=== PATIENT | female | born 1945 | race Caucasian/White ===

== ENCOUNTER → 2017-09-08 | Day surgery (SDC) | payer MEDICARE, OTHER ==
[2017-09-06 14:03] LABS: BASOPHILS % 0.3 % (0.0-1.0); EOSINOPHILS # (AUTO) 0.1 (0.0-0.4); EOSINOPHILS % 0.8 % (0.0-6.0); HEMATOCRIT 30.4 % (34.2-44.1); LYMPHOCYTES # (AUTO) 2.2 (1.0-3.2); LYMPHOCYTES % 27.7 % (18.0-39.1); MEAN CORPUSCULAR HEMOGLOBIN 24.6 pg (28-32); MEAN CORPUSCULAR HGB CONC 29.6 g/dL (31-35); MEAN CORPUSCULAR VOLUME 83.1 fL (81-99); MONOCYTES # (AUTO) 0.6 (0.2-0.8); MONOCYTES % 7.3 % (4.4-11.3); PLATELET COUNT 300 x10e3/uL (140-360); RED BLOOD COUNT 3.66 x10e6/uL (3.6-5.1)
[2017-09-06 14:24] LABS: ANION GAP 13.7 mmol/L (8-16); CALCIUM 8.8 mg/dL (8.4-10.2); CREATININE, SERUM 0.96 mg/dL (0.57-1.11); POTASSIUM 4.7 mmol/L (3.5-5.1)
--- NOTE | 2017-09-06 14:39 | Diagnostic Imaging Report ---
PROCEDURE: X-RAY CHEST, TWO VIEWS COMPARISON: None. INDICATIONS: PRE OPERATIVE CHEST X-RAY FINDINGS: LUNGS: No consolidations or edema. The vascular markings are normal. PLEURA: No effusions or pneumothorax. There is [id number] eventration of left diaphragm. HEART \T\ MEDIASTINUM: The heart is normal in size. The aorta is mildly ectatic with calcifications in the descending thoracic aorta. BONES \T\ SOFT TISSUES: Diffusely demineralized. There are compression deformities of the lower thoracic spine of approximately 50%. There is mild kyphosis of the lower thoracic spine. There are no lytic or blastic lesions. Clips in the upper abdomen are suggestive of cholecystectomy. CONCLUSION: No acute thoracic abnormality. 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 Compression deformities of the lower thoracic spine. Dictated by: Fransisco Huitron M.D. on 09/06/2017 at 14:39 Electronically approved by: Fransisco Huitron M.D. on 09/06/2017 at 14:39
[~2017-09-08] MED LIST: ALLEGRA ALLERG180 MG PO; ARTIFICIAL TEA1 EACH OP; BACLOFEN10 MG PO; BACTRIM DS TAB1 EACH PO; BELLADONNA/OPIUM 60 MG SUPP PR ONE; BUPIVACAINE 0.25%/EPI 30ML SDV INJ ONE; CARAFATE1 GM/10 ML PO; COLACE100 MG PO; CYMBALTA30 MG PO; DEPAKOTE SPRIN125 MG PO; DEXAMETHASONE SOD PHOS INJ 4 MG/ML VIAL ONE; DILAUDID2 MG PO; FOLIC ACID1 MG PO; GENTAMICIN 80MG/NS 100 ML 100 ML IV ONE; IOPAMIDOL 610MG/1ML 300 MG/ML VIAL IV ONE; KETOROLAC TROMETHAMINE 30 MG/ML VIAL ONE; LASIX20 MG PO; LIDOCAINE HCL 2% LOCAL INJ 5 ML SDV VIAL INJ ONE; MELATONIN3 MG PO; METHADONE HCL10 MG PO; MIDAZOLAM HCL 2 MG/2 ML VIAL ONE; MORPHINE SULFATE INJ 10 MG/ML ONE; MULTIVITAMINS1 EAC6 PO; MUPIROCIN 2% OINT 22 GM TUBE ONE; NAPROSYN500 MG PO; NYSTATIN-TRIAMC15 GM TOP; ONDANSETRON HCL INJ 2 MG/ML VIAL ONE; PIPER-TAZ 3.375 GM 50 ML ONE; PREDNISONE5 MG PO; PROPOFOL IV EMULSION 10 MG/ML 20 ML VIAL ONE; SENNA S TABLET1 EACH PO; SEVOFLURANE INHAL SOLN 250 ML PEN BTL ONE; TRAZODONE HCL50 MG PO; VITAMIN C500 MG PO; VITAMIN D1000 UNIT PO; XANAX0.25 MG PEG
--- OUTSIDE RECORDS SUMMARY | 2017-09-08 08:48 | XMS REPORT ---
Author Author [facility] Address Unknown Phone Unavailable Care Team Providers Care Volunteer Patient Representative Name Role Phone KENZIE GUTIERREZ Unavailable Unavailable Problems This patient has no known problems. Allergies, Adverse Reactions, Alerts This patient has no known allergies or adverse reactions. Medications This patient has no known medications. Results Test Description Test Time Test Comments Text Results Atomic Results Result Comments CHEST 2 VIEWS [place] [address] Patient Name: TYSON WATTS MR #: [id number] : 1945 Age/Sex: 72/F Req #: [id number] Adm Physician: Ordered by: LISA GRAMAJO MD Report #: [id number] Location: OR Room/Bed: Procedure: [id number] DX/CHEST 2 VIEWS Exam Date: Exam Time: REPORT STATUS: Signed PROCEDURE: X-RAY CHEST, TWO VIEWS COMPARISON: None. INDICATIONS: PRE OPERATIVE CHEST X-RAY FINDINGS: LUNGS: No consolidations or edema. The vascular markings are normal. PLEURA: No effusions or pneumothorax. There is [id number] eventration of left diaphragm. HEART T MEDIASTINUM: The heart is normal in size. The aorta is mildly ectatic with calcifications in the descending thoracic aorta. BONES T SOFT TISSUES: Diffusely demineralized. There are compression deformities of the lower thoracic spine of approximately 50%. There is mild kyphosis of the lower thoracic spine. There are no lytic or blastic lesions. Clips in the upper abdomen are suggestive of cholecystectomy. CONCLUSION: No acute thoracic abnormality. 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 Compression deformities of the lower thoracic spine. Dictated by: Valerie Huitron M.D. on 09/06/2017 at 14:39 Electronically approved by: Valerie Huitron M.D. on 09/06/2017 at 14:39 Dictated By: VALERIE HUITRON MD 1439 Transcribed By : JOSE on 09/06/17 1439 COPY TO: LISA GRAMAJO MD
--- NOTE | 2017-10-21 03:59 | Operative Report ---
DATE OF PROCEDURE: September 08, 2017 PREOPERATIVE DIAGNOSES: 1. Chronic urinary retention. 2. Urinary tract infections. PREOPERATIVE DIAGNOSES: 1. Chronic urinary retention. 2. Urinary tract infections. 3. Complete left-sided ureteral duplication. 4. Atrophic (senile) vaginitis. OPERATIONS PERFORMED: 1. Cystourethroscopy with bilateral ureteral catheterization and retrograde ureteropyelography (3 total ureteral catheterizations performed, 2 on the left and 1 on the right). 2. Interpretation of retrograde ureteropyelography. 3. Supervision of fluoroscopy, no radiologist present. 4. Cystourethroscopy with cystotomy and cystostomy (separate procedure performed for the urinary retention for placement of suprapubic cystostomy). 5. Pelvic examination under anesthesia. ANESTHESIA: General. COMPLICATIONS: None. CLINICAL SUMMARY: Brittney Hernandez is 72-year-old woman with chronic urinary retention. She wants a suprapubic cystostomy. She is aware of the risks of bleeding, infection, injury to adjacent structures, need for additional procedures, and elected to proceed. OPERATIVE PROCEDURE IN DETAIL: Informed consent was verified. Brittney Hernandez was properly identified, taken to the operating room and placed on the cystoscopy table in supine position. Anesthesia was uneventfully begun. The patient was then carefully and gently repositioned in the dorsal lithotomy position with all pressure points well padded. Her genitalia were prepared and draped in usual sterile fashion. The 22.5-Italian cystoscope sheath with the obturator in place was atraumatically inserted in patient's urethra and bladder was drained. Panendoscopy of the urinary bladder revealed 2 left ureteral orifices, there was 1 ureteral orifice on the right. The right ureteral orifice was laterally displaced. No suspicious mucosal lesions were identified. A ureteral catheter was used to cannulate both ureters on the left and the single ureter on the right, and retrograde ureteral pyelograms were performed. Interpretation of retrograde ureteropyelography: Contrast was instilled in retrograde fashion bilaterally. The right hand side exhibited normal ureter and normal upper collecting system. There was some lateral displacement of the ureteral orifice noted fluoroscopically. The left hand side exhibited complete ureteral duplication with delicate calices. No sign of caliceal blunting. Unobstructed drainage was observed bilaterally fluoroscopically. The patient's bladder was filled to capacity under gravity drainage. We then placed a spinal needle through the suprapubic region into the cephalad portion of the anterior bladder wall. We then infiltrated this tract with Marcaine with epinephrine. We then made a small stab wound. We then placed an introducer needle, followed by dilator sheath. We then utilized this dilator sheath to place an 18-Italian Santizo catheter. This was all done under cystoscopic control with the full bladder. Once this was performed, the Santizo catheter was deployed and peel-away sheath was removed. The suprapubic cystostomy was then secured to the skin with nylon sutures. There was no evidence of bleeding from that site. The patient's bladder was then drained. The cystoscope was withdrawn. Pelvic examination under anesthesia revealed severely atrophic (senile) vaginitis. No abnormal palpable pelvic masses could be appreciated. Urine culture was sent for documentation. The patient was then uneventfully reversed from anesthesia and taken to recovery room in stable condition. There were no complications to the procedure. She tolerated the procedure well. Plans will be to follow the patient up in 5 or 6 weeks to change her cystostomy tube for the first time in the office. Job#: [id number] cc:SAL CASTELLANOS MD
== END | disposition home or self-care (01) ==
LOC: OR 08:45
PROVIDERS: ATTEND Urology
DX: N39.0 Urinary tract infection, site not specified (principal); Q62.5 Duplication of ureter; N39.46 Mixed incontinence; N39.44 Nocturnal enuresis; N81.89 Other female genital prolapse; N95.2 Postmenopausal atrophic vaginitis; I10 Essential (primary) hypertension; Z01.810 Encounter for preprocedural cardiovascular examination; Z01.812 Encounter for preprocedural laboratory examination; Z01.818 Encounter for other preprocedural examination
CPT/HCPCS: 36415; 51102; 52005; 71046; 74420; 80048; 85025; 87086; 93005; C1758; J1100; J1580; J1885; J2001; J2250; J2270; J2405; J2543; Q9967

== ENCOUNTER → 2018-03-16 | Day surgery (SDC) | payer MEDICARE ==
[2018-03-14 14:29] LABS: BASOPHILS % 0.2 % (0.0-1.0); EOSINOPHILS # (AUTO) 0.1 (0.0-0.4); EOSINOPHILS % 1.2 % (0.0-6.0); HEMATOCRIT 33.3 % (34.2-44.1); HEMOGLOBIN 9.9 g/dL (12.0-16.0); LYMPHOCYTES # (AUTO) 3.2 (1.0-3.2); LYMPHOCYTES % 38.7 % (18.0-39.1); MEAN CORPUSCULAR HGB CONC 29.7 g/dL (31-35); MEAN CORPUSCULAR VOLUME 84.1 fL (81-99); MONOCYTES # (AUTO) 0.7 (0.2-0.8); MONOCYTES % 8.8 % (4.4-11.3); NEUTROPHILS % 49.6 % (38.7-80.0); PLATELET COUNT 222 x10e3/uL (140-360); RED BLOOD COUNT 3.96 x10e6/uL (3.6-5.1)
[~2018-03-16] MED LIST changes: -BELLADONNA/OPIUM 60 MG SUPP PR ONE; +BOTULINUM TOXIN TYPE A 100 UNIT VIAL IM ONE; -BUPIVACAINE 0.25%/EPI 30ML SDV INJ ONE; +CYCLOBENZAPRINE10 MG PO; +DESFLURANE 240 ML BTL INH ONE; +DULCOLAX SUPP10 MG RC; +FENTANYL CITRATE/PF 100MCG/2 ML INJ ONE; +HYDROMORPHONE 2MG/ML 2 MG/ML ML ONE; -KETOROLAC TROMETHAMINE 30 MG/ML VIAL ONE; -MIDAZOLAM HCL 2 MG/2 ML VIAL ONE; -MORPHINE SULFATE INJ 10 MG/ML ONE; -MUPIROCIN 2% OINT 22 GM TUBE ONE; +MYLANTA PO; +MYRBETRIQ50 MG PO; +PEPTO-BISMOL262 M1 PO; +PROMOD946 ML PO; +ROBAFEN100 MG/5 M PO; -SEVOFLURANE INHAL SOLN 250 ML PEN BTL ONE; +TRIAMCINOLONE A15 G1 TOP; +TYLENOL WITH C1 EACH PO; +VITAMIN B-121000 MCG PO; +VITAMIN C500 M1 PO; +VITAMIN D10000 UNIT PO; +XANAX0.25 MG PO; +ZOFRAN ODT4 MG PO
[2018-03-16 11:45] VITALS: BP 114/68
--- NOTE | 2018-05-02 08:00 | Operative Report ---
DATE OF PROCEDURE: March 16, 2018 PREOPERATIVE DIAGNOSES 1. Refractory urge incontinence. 2. Chronic urinary retention. 3. Suprapubic cystostomy. 4. Urinary tract infections. POSTOPERATIVE DIAGNOSES 1. Refractory urge incontinence. 2. Chronic urinary retention. 3. Suprapubic cystostomy. 4. Urinary tract infections. 5. Minimal cystocele. 6. Mild rectocele. 7. Atrophic (senile) vaginitis. PROCEDURES PERFORMED 1. Exchange of the cystostomy tube (separate procedure performed for the cystostomy tube). 2. Cystourethroscopy with bilateral ureteral catheterization and retrograde ureteropyelography (separate procedure performed for the urinary tract infections). 3. Interpretation of retrograde ureteropyelography. 4. Cystourethroscopy with intravesical injection of Botox (separate procedure performed for the refractory urge incontinence). 5. Pelvic examination under anesthesia. ANESTHESIA: General. COMPLICATIONS: None. CLINICAL SUMMARY: Brittney Hernandez is a 73-year-old woman with a suprapubic cystostomy. She has some refractory urge incontinence. She is brought for the above procedures. She is aware of the risks of bleeding, infection, injury to adjacent structures, need for additional procedures. She elected to proceed. OPERATIVE PROCEDURE IN DETAIL: Informed consent was properly. Brittney Hernandez was properly identified, taken to the operating room, and placed on the cystoscopy table in supine position. Anesthesia was uneventfully begun. The patient was then carefully and gently repositioned in dorsal lithotomy position with all pressure points well padded. Her genitalia and abdomen were prepared and draped in the usual sterile fashion. We placed a 24-[place] Santizo catheter with a 10-mL balloon through the suprapubic cystostomy site. We inflated the balloon with 10 mL of water. The 22.5-[place] cystoscope sheath was inserted in the patient's urethra. Panendoscopy revealed no suspicious mucosal lesions, no tumors, no stones and no diverticula. A cystostomy tube was seen at the anterior bladder wall. There were no suspicious lesions. An 8-[place] catheter was used to cannulate each ureter, and retrograde ureteropyelograms were performed. Interpretation of retrograde ureteropyelography: Contrast was instilled in a retrograde fashion bilaterally. There were no tumors, no stones and no diverticula. Unobstructed drainage was observed bilaterally fluoroscopically. Two hundred units of Botox were dissolved in 20 mL of sterile saline, and 1-mL aliquots were injected in an even distribution in the supratrigonal bladder. The patient's bladder was drained. Cystoscope was withdrawn. Pelvic examination under anesthesia revealed a minimal cystocele of the cephalad-most portion of the vagina. There was a grade-1 rectocele. There was atrophic (senile) vaginitis. No abnormal palpable pelvic masses could be appreciated. The patient was uneventfully reversed from anesthesia and taken to the recovery room in stable condition. Explicit postoperative instructions were given. We will follow the patient up in the office. Job#: [id number]
== END | disposition home or self-care (01) ==
LOC: OR 06:18
PROVIDERS: ATTEND Urology
DX: N39.46 Mixed incontinence (principal); N39.0 Urinary tract infection, site not specified; Z43.5 Encounter for attention to cystostomy; Q62.5 Duplication of ureter; N81.10 Cystocele, unspecified; N81.6 Rectocele; N95.2 Postmenopausal atrophic vaginitis; F41.9 Anxiety disorder, unspecified; F32.9 Major depressive disorder, single episode, unspecified; Z01.810 Encounter for preprocedural cardiovascular examination; Z01.812 Encounter for preprocedural laboratory examination
CPT/HCPCS: 36415 ×2; 51705; 52005; 52287; 74420; 84132; 85025; 93005; C1758; J0587; J1100; J1170; J1580; J2001; J2405; J2543; Q9967

== ENCOUNTER → 2018-06-08 | Day surgery (SDC) | payer MEDICARE ==
[~2018-06-08] MED LIST changes: +AMPICILLIN SOD 1 GM/NS 50ML 50 ML IV ONE; +BELLADONNA/OPIUM 30 MG SUPP RC ONE; +CEFTRIAXONE SOD 1 GM/NS 50 ML 50 ML IV ONE; -DESFLURANE 240 ML BTL INH ONE; -HYDROMORPHONE 2MG/ML 2 MG/ML ML ONE; -ONDANSETRON HCL INJ 2 MG/ML VIAL ONE; +ONDANSETRON HCL INJ 2MG/ML 2ML 2 MG/ML VIAL ONE; -PIPER-TAZ 3.375 GM 50 ML ONE; +SEVOFLURANE INHAL SOLN 250 ML PEN BTL ONE
[2018-06-08 07:33] LABS: BASOPHILS # (AUTO) 0.1 (0.0-0.1); BASOPHILS % 0.7 % (0.0-1.0); EOSINOPHILS # (AUTO) 0.4 (0.0-0.4); HEMATOCRIT 34.2 % (34.2-44.1); HEMOGLOBIN 10.4 g/dL (12.0-16.0); LYMPHOCYTES # (AUTO) 3.3 (1.0-3.2); LYMPHOCYTES % 34.3 % (18.0-39.1); MEAN CORPUSCULAR HEMOGLOBIN 26.8 pg (28-32); MEAN CORPUSCULAR HGB CONC 30.4 g/dL (31-35); MEAN CORPUSCULAR VOLUME 88.1 fL (81-99); MONOCYTES % 10.2 % (4.4-11.3); NEUTROPHILS # (AUTO) 4.7 (2.1-6.9); NEUTROPHILS % 48.8 % (38.7-80.0); PLATELET COUNT 226 x10e3/uL (140-360); RED BLOOD COUNT 3.88 x10e6/uL (3.6-5.1); RED CELL DISTRIBUTION WIDTH 14.3 % (11.7-14.4)
[2018-06-08 07:44] LABS: ANION GAP 11.9 mmol/L (8-16); BLOOD UREA NITROGEN 18 mg/dL (7-26); BUN/CREATININE RATIO 22 (6-25); CALCIUM 8.4 mg/dL (8.4-10.2); CARBON DIOXIDE 31 mmol/L (22-29); CHLORIDE 97 mmol/L (98-107); CREATININE, SERUM 0.81 mg/dL (0.57-1.11); EST GLOMERULAR FILTRATION RATE > 60 ML/MIN (60-); GLUCOSE 84 mg/dL (74-118); POTASSIUM 3.9 mmol/L (3.5-5.1); SODIUM 136 mmol/L (136-145)
[2018-06-08 11:15] VITALS: BP 118/71
--- NOTE | 2018-08-02 03:17 | Operative Report ---
DATE OF PROCEDURE: June 08, 2018 PREOPERATIVE DIAGNOSES 1. Refractory urge incontinence. 2. Urinary tract infections. 3. Suprapubic cystostomy. 4. Urinary retention. POSTOPERATIVE DIAGNOSES 1. Refractory urge incontinence. 2. Urinary tract infections. 3. Suprapubic cystostomy. 4. Urinary retention. 5. Ureteral duplication. 6. Atrophic vaginitis. 7. Rectocele. OPERATIONS PERFORMED 1. Change of cystostomy tube (separate procedure performed for the retention and suprapubic cystostomy). 2. Cystourethroscopy with bilateral ureteral catheterization and retrograde ureteropyelography (separate procedure performed for all 3 ureters including the complete ureteral duplication on the left hand side done for the urinary tract infections). 3. Interpretation of retrograde ureteropyelography. 4. Cystourethroscopy with intravesical injection of 200 units of Botox (separate procedure performed for the refractory urge incontinence). 5. Pelvic examination under anesthesia. ANESTHESIA: General. COMPLICATIONS: None. CLINICAL SUMMARY: Brittney Hernandez is a 73-year-old woman with urinary retention and chronic suprapubic cystostomy. She undergoes monthly changes. She has urinary tract infections. She has some refractory urge incontinence and elected to proceed with surgery as planned. She is aware of the risks of bleeding, infection, injury to adjacent structures, need for additional procedures, and elected to proceed. She also understands the temporary nature of Botox injections and the requirements that it be performed on a regular basis. OPERATIVE PROCEDURE IN DETAIL: Informed consent was verified. Brittney Hernandez was properly identified, taken to the operating room, placed on the cystoscopy table in supine position. Anesthesia was uneventfully begun. The patient was carefully and gently re-positioned in dorsal lithotomy position with all pressure points well padded. Her suprapubic cystostomy was removed, and her abdomen and genitalia were prepared and draped in usual sterile fashion. A 24-Kyrgyz Santizo catheter with a 10-mL balloon was inserted atraumatically into the patient's suprapubic cystostomy tract. It was then filled with 10 mL of sterile water, irrigated to and fro to ensure it worked properly. The 22.5-Kyrgyz cystoscope sheath with obturator in place was atraumatically inserted into the patient's urethra and the bladder was drained. Panendoscopy of the urinary bladder revealed no suspicious mucosal lesions. No tumors, no stones, and no diverticula. Two ureteral orifices were identified on the left hand side. Ureteral catheters were then introduced into all 3 ureters. Retrograde ureteropyelographies were performed. Interpretation of retrograde ureteropyelography: Contrast was instilled in retrograde fashion bilaterally. There was mild J-hooking noted on the right hand side. There was some fullness of the renal pelvis, some tortuosity of the ureter, but there was no hydronephrosis and unobstructed drainage was observed bilaterally fluoroscopically. The right hand side exhibited complete ureteral duplication with no filling defects and no other abnormalities. Unobstructed drainage was observed on this side as mentioned previously. There was no sign of upper tract nephrolithiasis at this level of resolution. Botox 200 units was then dissolved in 20 mL of sterile saline. It was e then injected in 1 mL increments in an even distribution throughout the bladder. The bladder was drained. The cystoscope was withdrawn. Pelvic examination under anesthesia revealed atrophic vaginitis with a rectocele noted. No cystocele was noted. No abnormal palpable pelvic masses could be appreciated. The patient was then uneventfully reversed from anesthesia and taken to the recovery room in stable condition. Explicit postop instructions were given. We will follow the patient up in approximately 1 month in order to change her cystostomy tube. Job#: [id number] CF cc:SAL CASTELLANOS MD
== END | disposition home or self-care (01) ==
LOC: OR 06:45
PROVIDERS: ATTEND Urology
DX: N39.46 Mixed incontinence (principal); N39.0 Urinary tract infection, site not specified; Z43.5 Encounter for attention to cystostomy; Q62.5 Duplication of ureter; N95.2 Postmenopausal atrophic vaginitis; N81.6 Rectocele; N13.8 Other obstructive and reflux uropathy; G89.29 Other chronic pain; N39.44 Nocturnal enuresis; Z87.891 Personal history of nicotine dependence
CPT/HCPCS: 36415; 51705; 52005; 52287; 74420; 80048; 85025; 93005; C1758; J0290; J0587; J0696; J1100; J1580; J2001; J2405; J2704; Q9967

== ENCOUNTER → 2018-09-28 | Day surgery (SDC) | payer MEDICARE, OTHER ==
[~2018-09-28] MED LIST changes: -AMPICILLIN SOD 1 GM/NS 50ML 50 ML IV ONE; -BELLADONNA/OPIUM 30 MG SUPP RC ONE; +BELLADONNA/OPIUM 60 MG SUPP PR ONE; -CEFTRIAXONE SOD 1 GM/NS 50 ML 50 ML IV ONE; +PIPER-TAZ 3.375 GM 50 ML ONE
[2018-09-28 10:22] LABS: BASOPHILS # (AUTO) 0.1 (0.0-0.1); BASOPHILS % 0.5 % (0.0-1.0); EOSINOPHILS # (AUTO) 0.2 (0.0-0.4); EOSINOPHILS % 2.3 % (0.0-6.0); HEMATOCRIT 34.6 % (34.2-44.1); HEMOGLOBIN 10.8 g/dL (12.0-16.0); LYMPHOCYTES % 19.8 % (18.0-39.1); MEAN CORPUSCULAR HEMOGLOBIN 26.3 pg (28-32); MEAN CORPUSCULAR HGB CONC 31.2 g/dL (31-35); MEAN CORPUSCULAR VOLUME 84.2 fL (81-99); MONOCYTES % 9.6 % (4.4-11.3); NEUTROPHILS # (AUTO) 6.5 (2.1-6.9); NEUTROPHILS % 63.9 % (38.7-80.0); PLATELET COUNT 326 x10e3/uL (140-360); RED BLOOD COUNT 4.11 x10e6/uL (3.6-5.1); RED CELL DISTRIBUTION WIDTH 13.5 % (11.7-14.4)
[2018-09-28 11:23] LABS: ANION GAP 10.5 mmol/L (8-16); BLOOD UREA NITROGEN 11 mg/dL (7-26); BUN/CREATININE RATIO 17 (6-25); CALCIUM 8.2 mg/dL (8.4-10.2); CARBON DIOXIDE 31 mmol/L (22-29); CHLORIDE 96 mmol/L (98-107); CREATININE, SERUM 0.65 mg/dL (0.57-1.11); EST GLOMERULAR FILTRATION RATE > 60 ML/MIN (60-); GLUCOSE 93 mg/dL (74-118); POTASSIUM 4.5 mmol/L (3.5-5.1); SODIUM 133 mmol/L (136-145)
--- NOTE | 2018-09-28 12:09 | Diagnostic Imaging Report ---
EXAMINATION: PA and lateral views of the chest. COMPARISON: None CLINICAL HISTORY: Preop for bladder surgery DISCUSSION: Left hemidiaphragmatic elevation. The lungs are well-inflated and without focal airspace consolidation, pleural effusion, or pneumothorax. Right middle lobe calcified granuloma. Atherosclerotic calcification of the thoracic aorta. Otherwise normal cardiomediastinal contour when accounting for left hemidiaphragmatic elevation. No pulmonary edema. No acute osseous abnormality. Multiple anterior compression deformities of the lower thoracic and upper lumbar spine with vertebroplasty cement within an upper lumbar vertebral body, likely L1. IMPRESSION: No acute cardiopulmonary abnormalities. Signed by: Dr. Bolivar Bajwa M.D. on 09/28/2018 12:05 PM
[2018-09-28 13:28] LABS: LYMPHOCYTES % (MANUAL) 14 % (19-48); METAMYELOCYTES % (MANUAL) 1 % (0-0); MONOCYTES % (MANUAL) 7 % (3.4-9.0); MYELOCYTES % (MANUAL) 1 % (0-0); NEUTROPHILS % (MANUAL) 76 % (40-74); PLATELET ESTIMATE ADEQUATE; PLATELET MORPHOLOGY COMMENT NORMAL; RBC MORPHOLOGY COMMENT NORMAL
[2018-09-28 13:35] VITALS: BP 150/81
--- NOTE | 2018-10-27 06:11 | Operative Report ---
DATE OF PROCEDURE: 09/28/2018 SURGEON: David Roberts MD PREOPERATIVE DIAGNOSES: 1. Refractory urge incontinence. 2. Suprapubic cystostomy. 3. Urinary tract infections. 4. Atrophic vaginitis. POSTOPERATIVE DIAGNOSES: 1. Refractory urge incontinence. 2. Suprapubic cystostomy. 3. Urinary tract infections. 4. Atrophic vaginitis. OPERATION PERFORMED: 1. Change of cystostomy tube (separate procedure performed for the patient's cystostomy tube in situ). 2. Cystourethroscopy with bilateral ureteral catheterization and retrograde ureteropyelography (separate procedure performed for the urine tract infections). 3. Interpretation of retrograde ureteropyelography. 4. Supervision of fluoroscopy, no radiologist present. 5. Cystourethroscopy with intravesical injection of 200 units of Botox. ANESTHESIA: General. COMPLICATIONS: None. CLINICAL SUMMARY: Brittney Hernandez is a 73-year-old woman with a neurogenic bladder, urinary incontinence, urinary retention, who is brought for the above procedures. She is aware of the risks of bleeding, infection, injury to adjacent structures, need for additional procedures and elected to proceed. OPERATIVE PROCEDURE IN DETAIL: Informed consent was verified. Brittney Hernandez was properly identified, taken to the operating room, placed on the operating table in supine position. Anesthesia was uneventfully begun. The patient was then carefully gently repositioned in dorsal lithotomy position with all pressure points well padded. Her genitalia were prepared and draped. Her suprapubic cystostomy was removed and her genitalia and abdomen were prepared and draped in usual sterile fashion. A 24-K[place] Santizo was then guided into the patient's suprapubic cystostomy tract. Once we felt it was deep enough, the balloon was inflated with 10 mL of sterile water. It was irrigated to and fro to ensure work properly. The cystoscope sheath was inserted in the patient's urethra and the bladder was drained. Panendoscopy revealed no suspicious mucosal lesions. Mild inflammation was noted. There were no tumors. A ureteral catheter was used to cannulate each ureter and retrograde ureteropyelogram was performed. Interpretation of retrograde ureteropyelography: Contrast was instilled in a retrograde fashion bilaterally. There were no tumors, no stones, no diverticula. Unobstructed drainage was observed bilaterally fluoroscopically. Botox was then injected, 200 units of Botox were dissolved in 20 mL of sterile saline, they were injected in 1 mL aliquots in an even distribution throughout the bladder. The patient's bladder was drained. The cystoscope was withdrawn. Pelvic examination revealed atrophic vaginitis with minimal amount of urethral erosion. No suspicious mucosal lesions were identified. There were no abnormal palpable pelvic masses could be appreciated. The patient was then uneventfully reversed from anesthesia and taken to the recovery room in stable condition. Expressive postop instructions were given. We will follow the patient up in the office. David MD CHRISTELLE Roberts/MODL /[id number]
== END | disposition home or self-care (01) ==
LOC: OR 09:47
PROVIDERS: ATTEND Urology
DX: N39.46 Mixed incontinence (principal); N31.9 Neuromuscular dysfunction of bladder, unspecified; N39.0 Urinary tract infection, site not specified; N39.44 Nocturnal enuresis; N81.89 Other female genital prolapse; N95.2 Postmenopausal atrophic vaginitis; Q62.5 Duplication of ureter; Z43.5 Encounter for attention to cystostomy; K21.9 Gastro-esophageal reflux disease without esophagitis; F32.9 Major depressive disorder, single episode, unspecified
CPT/HCPCS: 36415; 51705; 52005; 52287; 71046; 74420; 80048; 85025; 87086; 93005; C1758; J0587; J1100; J1580; J2001; J2405; J2543; J2704; Q9967